=== PATIENT | male | born 1975 | race Caucasian/White ===

== ENCOUNTER 2019-05-27 10:19 | Observation (INO) | payer OTHER, SELFPAY ==
--- NOTE | ~2019-05-27 | CT_ITS ---
EXAMINATION: CTA brain carotid DATE: 05/27/2019 18:26 INDICATION: Left-sided paresthesias TECHNIQUE: Computed tomographic angiography (CTA) of the head was performed without and with 100 mL O mnipaque-350 intravenous contrast. CTA of the neck was performed with intravenous contrast. The dose- length product was 1799.96 mGy-cm. Maximum intensity projection and volume rendered 3D-reconstruction s were created by the technologist on a separate workstation. Automated exposure control and iterativ e reconstruction technique were employed. COMPARISON: None. FINDINGS: HEAD CTA: There is no intracranial hemorrhage, acute infarction, or abnormal mass lesion. The ventri cles are normal. There is no abnormal mass effect or midline shift. The chapa-white matter differentia tion is normal. The basal cisterns are patent. The orbits are normal. The paranasal sinuses, mastoids and calvarium are normal. There is no significant stenosis of the basilar artery or posterior cerebral arteries. There is no si gnificant stenosis of the intracranial internal carotid arteries or the anterior or middle cerebral a rteries. The anterior communicating artery and posterior communicating arteries are normal. There is no aneurysm. NECK CTA: There are no pathologically enlarged lymph nodes. No abnormal enhancement is present after contrast administration. There are calcified nodules of the right thyroid lobe which measure up to 9 mm. There is 0% stenosis of the proximal right internal carotid artery relative to normal distal artery l umen diameter (NASCET criteria). There is 0% stenosis of the proximal left internal carotid artery re lative to normal distal artery lumen diameter. IMPRESSION: 1. No acute intracranial abnormality. Normal head CTA. 2. 0% stenosis of the proximal right internal carotid artery relative to normal distal artery lumen d iameter (NASCET criteria). 3. 0% stenosis of the proximal left internal carotid artery relative to normal distal artery lumen di ameter. Reviewed, dictated and finalized at location A. IMPRESSION: 1. No acute intracranial abnormality. Normal head CTA. 2. 0% stenosis of the proximal right internal carotid artery relative to normal distal artery lumen diameter (NASCET criteria). 3. 0% stenosis of the proximal left internal carotid artery relative to normal distal artery lumen diameter.
--- NOTE | ~2019-05-27 | MR_ITS ---
EXAMINATION: MR brain/brain stem wo/w con DATE: 05/28/2019 10:37 INDICATION: Transient ischemic episode with left-sided paresthesias TECHNIQUE: Magnetic resonance imaging (MRI) of the brain and brainstem was performed without and with 19 mL Multihance intravenous contrast. Sequences included sagittal and axial T1-weighted SE, axial d iffusion-weighted FS SE, axial T2*-weighted GRE, axial T2-weighted FLAIR, and axial T2-weighted FSE. Postcontrast axial and coronal T1-weighted SE was obtained. Apparent diffusion coefficient (ADC) maps were created. COMPARISON: None. FINDINGS: There are no areas of restricted diffusion to suggest acute infarction. No intracranial hemorrhage or abnormal intracranial mass lesion. There are no intraparenchymal signal abnormalities seen on the ot her pulse sequences. The ventricles are symmetric and normal in size. There are no abnormal extra-axi al fluid collections. Flow voids are seen in the cerebral arteries on the T2-weighted sequences consi stent with their expected patency. Mild mucosal thickening the bilateral ethmoid sinuses. Visualized orbits and soft tissues are unremarkable. There are no areas of abnormal enhancement on the post cont rast images. IMPRESSION: 1. Normal brain. No acute intracranial process. Reviewed, dictated and finalized at location A.
--- NOTE | ~2019-05-27 | CT_ITS ---
EXAMINATION: CT brain wo con DATE: 05/27/2019 11:14 INDICATION: Facial and hand paresthesia, left side. History of hypertension. TECHNIQUE: Computed tomography (CT) of the head was performed without intravenous contrast. The mA wa s adjusted according to patient size. Iterative reconstruction technique was employed. Exam dose: 60 5.33 mGy-cm total exam DLP. COMPARISON: None FINDINGS: Mild cerebral calcified atherosclerosis. No intracranial mass lesion or hemorrhage or cerebrovascular accident is evident. Normal ventricular size. No midline shift or mass effect. No subdural or epidural hematoma. No fracture or bone destruction of the cranial vault. There is some focal soft tissue opacification of the right ethmoid air cells. Otherwise the included paranasal sinuses and mastoid air cells are normally developed and aerated. IMPRESSION: Cerebral atherosclerosis No acute intracranial finding Reviewed, dictated and finalized at Location [facility]. Reviewed, dictated and finalized at location A.
--- NOTE | ~2019-05-27 | XR_ITS ---
XR chest 2V DATE: 05/27/2019 11:14 INDICATION: Facial and hand paresthesia, tingling TECHNIQUE: PA and lateral views COMPARISON: None FINDINGS: Normal heart size. No hilar or mediastinal enlargement. No pulmonary infiltrate or consolid ation, pleural effusion or pulmonary vascular congestion or pneumothorax. 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 IMPRESSION: No active cardiopulmonary disease Reviewed, dictated and finalized at location A.
[2019-05-27 10:30] VITALS: BP 175/106; PULSE 76; RESP 12; TEMP 37.1; O2SAT 100
--- NOTE | 2019-05-27 10:36 | ECG_ITS ---
Measurements Intervals [place] Rate: 61 P: 32 NC: 175 QRS: -7 QRSD: 100 T: 34 QT: 375 QTc: 379 Interpretive Statements SINUS RHYTHM VOLTAGE CRITERIA FOR LVH BORDERLINE ECG Electronically Signed On 05-27-2019 10:42:51 CDT by Jese Iniguez D.O.
--- NOTE | 2019-05-27 10:43 | ED.NEUROSD ---
HPI - Neuro Symptoms/Deficit General Chief Complaint: Neuro Symptoms/Deficit Stated Complaint: TINGLING TO FACE, HAND Time Seen by Provider: 05/27/19 10:29 History of Present Illness HPI Narrative: Patient is a 43-year-old male who presents the ER with left-sided facial and left hand paresthesias. Experienced the symptoms briefly 2 days ago but then started having them early this morning and they have been persistent. Was instructed by his boss at work that he probably need to be checked out. Patient reports history of hypertension and high cholesterol but no other issues. Patient denies any muscle weakness or extremity weakness, he has had no ataxia or dysarthria. No history of stroke. Patient cannot find any aggravating or alleviating factors. Related Data Home Medications Medication Instructions Recorded Confirmed atorvastatin 05/27/19 hydrochlorothiazide 05/27/19 Review of Systems Review of Systems: All systems reviewed & are unremarkable except as noted in HPI and below Constitutional: Constitutional: Denies chills, Denies fever(s) and Denies weakness ENT: Denies dizziness, Denies nasal congestion and Denies sore throat Cardiovascular: Cardiovascular: Denies chest pain and Denies radiating jaw, neck or arm pain Respiratory: Respiratory: Denies cough, Denies dyspnea and Denies wheezing Gastrointestinal: Gastrointestinal: Denies abdominal pain, Denies nausea and Denies vomiting Neurologic: Denies dizziness, Denies syncope, Denies headache(s), Denies focal weakness and Reports numbness PMFSH Past Medical History Medical History (Updated 05/27/19 @ 15:24 by Joshua Spence MD) Hypercholesterolemia Hypertension Surgical History Surgical History (Updated 05/27/19 @ 15:19 by Joshua Spence MD) No pertinent past surgical history Family History Family History (Updated 05/27/19 @ 15:21 by Joshua Spence MD) Father Heart disease Social History Social History (Updated 05/27/19 @ 15:21 by Joshua Spence MD) Smoking status: Never smoker Gender identity (if verbalized by the patient): Male Exam Narrative: Exam Narrative: GENERAL: Well-appearing, well-nourished, and in no acute distress. HEAD: Normocephalic, atraumatic. EYES: PERRL and EOMI. ENT: Mucous membranes moist. CHEST: Clear to auscultation. No respiratory distress. HEART: Regular rate and rhythm. Normal peripheral pulses. ABDOMEN: Soft, nontender, nondistended. EXTREMITIES: Normal range of motion. No edema. SKIN: Warm, dry, no rash. NEURO: No focal deficits. Cranial nerves II through XII intact. No upper or lower extremity drift. Normal eacy-sg-gehc testing. No dysarthria or expressive aphasia. Alert and oriented x3. No sharp or soft touch deficit when comparing each side of the face bilaterally or in the hands. Course Course Emergency Course: NIH stroke scale 0. Patient with significantly elevated blood pressures that may be causing his symptoms. Additionally CT shows cerebral atherosclerosis. Will admit for observation and obtain MRI and further manage blood pressure. Vital Signs Vital signs: Vital Signs Temperature 98.8 F 05/27/19 10:30 Pulse Rate 76 05/27/19 10:30 Respiratory Rate 12 05/27/19 10:30 Blood Pressure 175/106 H 05/27/19 10:30 Pulse Oximetry 100 05/27/19 10:30 Temperature 97.9 F 05/27/19 14:20 Pulse Rate 56 L 05/27/19 14:20 Respiratory Rate 18 05/27/19 14:20 Blood Pressure 158/98 H 05/27/19 14:20 Pulse Oximetry 99 05/27/19 14:20 MDM - Neuro Symptoms/Deficit Lab Data Result diagrams: 05/27/19 10:42 05/27/19 10:42 Labs: Lab Results 05/27/19 05/27/19 05/27/19 Range/Units 10:42 10:42 10:42 WBC 7.1 (4.5-10.0) K/mm3 RBC 5.30 (4.2-5.4) M/mm3 Hgb 17.1 H (12.0-15.0) g/dL Hct 49.5 H (37.0-47.0) % MCV 93.4 (80-100) fl MCH 32.3 (26-34) pg MCHC 34.5 (32-36) g/dl RDW 12.4 (11.5-14.5)
[2019-05-27 10:50] LABS: Basophils Percent Auto 0.3 % (0.2-1.2); Eosinophils Absolute Auto 0.2 K/mm3 (0-0.3); Eosinophils Percent Auto 2.9 % (0-4.4); Hematocrit 49.5 % (37.0-47.0); Hemoglobin 17.1 g/dL (12.0-15.0); Immature Granulocyte Absolute 0.01 K/mm3 (0.00-0.031); Immature Granulocyte Percent A 0.1 % (0-0.5); Lymphocytes Absolute Auto 3.56 K/mm3 (0.9-3.2); Lymphocytes Percent Auto 49.9 % (18.3-44.2); Mean Corpuscular HGB Conc 34.5 g/dl (32-36); Mean Corpuscular Hemoglobin 32.3 pg (26-34); Mean Corpuscular Volume 93.4 fl (80-100); Mean Platelet Volume 10.3 fl (7.4-10.4); Monocytes Absolute Auto 0.9 K/mm3 (0.1-0.6); Monocytes Percent Auto 12.1 % (2.6-8.5); Neutrophils Absolute Auto 2.5 K/mm3 (1.3-6.7); Neutrophils Percent Auto 34.7 % (45.5-73.1); Platelet Count Result 241 k/mm3 (150-375); Red Cell Distribution Width 12.4 % (11.5-14.5); White Blood Count 7.1 K/mm3 (4.5-10.0)
[2019-05-27 11:00] LABS: Prothrombin Time 12.6 Seconds (11.1-14.7)
[2019-05-27 11:03] LABS: Blood Urea Nitrogen 13 mg/dL (9-20); Calcium 9.7 mg/dL (8.4-10.2); Carbon Dioxide 29 mmol/L (22-30); Chloride 102 mmol/L (98-107); Estimated CRCL calculation 98 ml/min; Estimated Glomerular Filt Rate > 60; Glucose 99 mg/dL (75-110); Potassium 3.5 mmol/L (3.4-5.0); Sodium 138 mmol/L (137-145)
[2019-05-27 11:15] LABS: Troponin I < 0.012 ng/mL (0.000-0.034)
[2019-05-27 13:17] VITALS: BP 162/100; PULSE 59; RESP 20; O2SAT 100
[2019-05-27 14:20] VITALS: BP 158/98; PULSE 56; RESP 18; TEMP 36.6; O2SAT 99
--- NOTE | 2019-05-27 14:24 | ADMGEN ---
This patient, Luke Rubio, was admitted to Medical Room 243-01. Patient/family oriented to hospital policies and general routines including ID bracelet, bed and alarms, visiting hours, pain management, procedures, bathroom and other care routines, personal items, smoking policy, room service/diet, and visiting hours. Valuables list has been completed. Information on how to activate the Rapid Response Team has been discussed. Patient/Family are encouraged to report perceived risks to care and to ask questions if they do not understand what they are told or what they should do.
[2019-05-27 15:08] VITALS: BMI 30.3
[2019-05-27 16:00] VITALS: PULSE 65
--- NOTE | 2019-05-27 18:15 | PM.IMHP ---
H&P: HPI History of Present Illness Chief complaint: Left-sided numbness and tingling. Narrative: Luke Rubio is a 43-year-old male with hypertension and hyperlipidemia who presented to the emergency department earlier this morning from his place of employment for evaluation of left-sided numbness and tingling. He was feeling fine when he went to work this morning, and not long prior to arrival while sitting at his desk he began to feel ?weird.? He than described having a numbness feeling around the left jaw ?like I was given Novocain and paresthesias of the left arm from the elbow into the 4th and 5th left fingers. He also mentions that his head felt funny, ?like when I stare into the sun too long.? He had a similar episode 2 days ago that began after he was outside doing yard work, which he attributed to being outside to long. His symptoms resolved by the time he got to the emergency department. Blood pressure on arrival to the emergency department was 175/106. He states compliance with his antihypertensives, but is only on 12.5 milligrams of hydrochlorothiazide. Apparently he had right carpal tunnel release in February 2019, and at that time his blood pressure was in the 150 systolic, which concerned him. He also mentioned increasing stress recently and feelings of anxiety. He denies headache, auditory visual changes, vertigo, and focal weakness. No chest pain or palpitations. Patient notes that he took aspirin 324 milligrams prior to coming into the hospital. Review of Systems Review of Systems: Narrative: Twelve systems were reviewed with pertinent positives and negatives as per HPI. He has been on slim 180 for the past couple of months and has lost approximately 35 pounds. He denies fever, chills, and sweats. No recent cold or flu symptoms. No exertional chest pain or shortness of breath. No cough. No orthopnea, PND, or lower extremity edema. He denies nausea, vomiting, and diarrhea. No dysuria. No lymphadenopathy. Denies gingival bleeding, pruritus, and flushed face. Except as documented, all other systems were reviewed and are negative. [facility] Past Medical History Medical History (Updated 05/27/19 @ 22:34 by Laurie Pittman PA-C) Hyperlipidemia Hypertension Surgical History Surgical History (Updated 05/27/19 @ 15:19 by Joshua Spence MD) No pertinent past surgical history Family History Family History (Updated 05/27/19 @ 15:58 by Nancy Tong RN) Father Heart disease Mother Small cell carcinoma Sibling Hodgkin lymphoma Social History Social History (Updated 05/27/19 @ 22:32 by Laurie Pittman PA-C) Social History: The patient lives in [place]. He has 2 dogs. He works at a local [employer]. He has no children. He smoked to half a pack of cigarettes per day for 10 years and quit several years back. He will occasionally smoke a cigar. He used to chew tobacco as well. He drinks alcohol on the weekends, and in moderation. He denies binge drinking. No drug use. He wishes to be a full code. He designates his friends Jessica and Anish rowan as his surrogate decision makers. Smoking packs per day: 0.5 Smoking cigarettes per day: 10.0 Years smoked: 10 Smoking pack-years: 5.00 Smoking status: Former smoker Tobacco type: cigarettes and cigars Smokeless tobacco user: chewing tobacco Alcohol intake: current Drinks per week: 5 Substance use: never Gender identity (if verbalized by the patient): Male Spiritual care concerns: No Agree to blood products: Yes Meds Home Medications and Allergies Home Medications Medication Instructions Recorded Confirmed Type atorvastatin 10 mg PO DAILY 05/27/19 05/27/19 History hydrochlorothiazide 12.5 mg PO DAILY 05/27/19 05/27/19 History Allergies Allergy/AdvReac Type Severity Reaction Status Date / Time No Known Allergies Allergy Verified 05/27/19 18:14 Vital Signs Vital Signs - 24 hr 0
[2019-05-27 20:00] VITALS: BP 157/106; PULSE 55; PULSE 61; RESP 20; TEMP 37.7; O2SAT 98
[2019-05-27] MEDS: LOSARTAN POTASSIUM 50 MG TABLET PO (22:27)
[2019-05-27] MEDS: hydroCHLOROthiazide 12.5 MG CAPSULE PO (22:27)
[2019-05-27] MEDS: ATORVASTATIN 10 MG TABLET PO (22:27)
[2019-05-28] VITALS: PULSE 57
[2019-05-28 01:59] VITALS: BP 116/62; PULSE 60; RESP 18; TEMP 36.3; O2SAT 98
[2019-05-28 04:00] VITALS: BP 124/74; PULSE 56; PULSE 59; RESP 18; TEMP 37.3; O2SAT 98
[2019-05-28 06:10] LABS: Basophils Percent Auto 0.3 % (0.2-1.2); Eosinophils Absolute Auto 0.2 K/mm3 (0-0.3); Eosinophils Percent Auto 2.9 % (0-4.4); Hematocrit 48.4 % (42.0-52.0); Hemoglobin 16.6 g/dL (14.0-18.0); Immature Granulocyte Absolute 0.02 K/mm3 (0.00-0.031); Immature Granulocyte Percent A 0.3 % (0-0.5); Lymphocytes Absolute Auto 3.06 K/mm3 (0.9-3.2); Lymphocytes Percent Auto 43.7 % (18.3-44.2); Mean Corpuscular HGB Conc 34.3 g/dl (32-36); Mean Corpuscular Hemoglobin 31.8 pg (26-34); Mean Corpuscular Volume 92.7 fl (80-100); Mean Platelet Volume 10.3 fl (7.4-10.4); Monocytes Absolute Auto 0.7 K/mm3 (0.1-0.6); Monocytes Percent Auto 9.4 % (2.6-8.5); Neutrophils Absolute Auto 3.1 K/mm3 (1.3-6.7); Neutrophils Percent Auto 43.4 % (45.5-73.1); Platelet Count Result 236 k/mm3 (150-375); Red Blood Count 5.22 M/mm3 (4.6-6.20); Red Cell Distribution Width 12.1 % (11.5-14.5)
[2019-05-28 06:22] LABS: Alanine Aminotransferase 41 U/L (4-50); Albumin Level 4.2 g/dL (3.5-5.1); Alkaline Phosphatase 57 U/L (38-126); Aspartate Amino Transferase 31 U/L (17-59); Cholesterol 144 mg/dL (0-200); HDL Direct 34 mg/dL; Triglycerides 89 mg/dL (<150)
[2019-05-28 06:25] LABS: Blood Urea Nitrogen 11 mg/dL (9-20); Calcium 9.3 mg/dL (8.4-10.2); Carbon Dioxide 28 mmol/L (22-30); Chloride 102 mmol/L (98-107); Estimated CRCL calculation 123 ml/min; Estimated Glomerular Filt Rate > 60; Glucose 103 mg/dL (75-110); Potassium 3.5 mmol/L (3.4-5.0); Sodium 137 mmol/L (137-145)
[2019-05-28 06:33] LABS: LDL Cholesterol Direct 96 mg/dL
[2019-05-28 08:00] VITALS: PULSE 55
[2019-05-28 08:05] VITALS: BP 140/87
[2019-05-28] MEDS: ASPIRIN 81 MG ENTERIC TABLET PO (08:51)
[2019-05-28] MEDS: LOSARTAN POTASSIUM 50 MG TABLET PO (08:52)
[2019-05-28] MEDS: ATORVASTATIN 10 MG TABLET PO (08:52)
[2019-05-28] MEDS: hydroCHLOROthiazide 12.5 MG CAPSULE PO (08:52)
--- NOTE | 2019-05-28 10:18 | CONS_ITS ---
DATE OF CONSULTATION: HISTORY OF PRESENT ILLNESS: This 43-year-old right-handed male has been admitted to the [facility] with complaints of left-sided numbness with tingling sensation in addition to ongoing history of 1. Hypertension. 2. Hyperlipidemia. He presented to the emergency room from his place of employment for the evaluation of left-sided numbness and tingling. As per the information available from him, he was feeling fine when he went to work in the morning and not long prior to arrival while sitting at his desk, he began to feel weird, developed numbness around the left jaw as if someone has given the Novocain and paresthesia of the left arm from the elbow into the 4th and the 5th finger. At the same time, his head felt funny. He had a similar episode about 2 days ago after he was outside doing yard work, which he attributed to being outside too long. His symptomatology was resolved by the time he got to the emergency department, but his blood pressure was 175/106, though he had been compliant with his antihypertensive medication and was taking 12.5 mg of hydrochlorothiazide. In the past, he has had a right carpal tunnel release in February 2019, and at that time, his systolic blood pressure was recorded to be 150. On today's visit, he definitely felt significantly better after his blood pressure came down. He has no previous surgical history. FAMILY HISTORY: Positive for the Hodgkin lymphoma in sibling. Mother with small cell carcinoma. Father with heart disease. SOCIAL HISTORY: He works at local [employer] with no children, smoked half a pack of cigarettes per day for 10 years, quit several years ago, though he occasionally smokes a cigar and also he used to chew tobacco in the past and drinks alcohol only on the weekends and in moderation. Smoking pack years 5 and years smoked 10. MEDICATIONS: He had been taking atorvastatin 10 mg daily, hydrochlorothiazide 12.5 mg daily. ALLERGIES: NOT ALLERGIC TO ANY MEDICATION. PHYSICAL EXAMINATION: GENERAL: Evaluation revealed him to be awake, alert, cooperative. VITAL SIGNS: Temp of 98.8, pulse 76, respiration 12, blood pressure 175/106, which has come down to 158/98 since he is in the hospital. HEENT: Head normocephalic with no cranial bruit. Ears, nose, throat examination normal. NECK: Supple with no cervical bruit. No thyromegaly. No lymphadenopathy. HEART: Regular with no murmur. LUNGS: Clear to auscultation. ABDOMEN: Soft with no organomegaly. NEUROLOGICAL: He is awake, alert, oriented x3. Speech not dysphasic, no dysarthric, not dysphonic. Pupils round, regular. Winkler of vision full. Extraocular movements full with no nystagmus. Facial sensation intact. Face symmetrical. Tongue midline. Uvula midline. Motor examination revealed him to have normal strength and tone in upper and lower extremities with sluggish but symmetrical reflexes. Downgoing plantar responses. LABORATORY DATA: Evaluation up until now includes CBC with WBC 7.1, hemoglobin 17.1, platelet count 241. Basic metabolic panel normal. Troponin less than 0.012. Initial CT scan of the head negative and so is the chest x-ray. Head and neck CTA was done, which revealed no intracranial or extracranial abnormalities. As mentioned above, head CT scan was negative. At this stage, he is taking atorvastatin, hydrochlorothiazide. In the emergency room, he was given the medication to lower the blood pressure and at this stage, he is feeling significantly better. DIAGNOSES: 1. Transient ischemic attack. 2. Possibility of additional carpal tunnel syndrome on the left side as well. SUGGESTIONS: To continue the antihypertensive medication. Follow in the outpatient and schedule the EMG and nerve
[2019-05-28 12:00] VITALS: PULSE 76
--- NOTE | 2019-05-28 13:32 | PM.DS ---
DS: Diagnosis Admitting Diagnosis Admitting Diagnosis: Paresthesia of skin Discharge Diagnosis (1) Paresthesias: Code(s): R20.2 - Paresthesia of skin Status: Acute (2) Hypertension: Code(s): I10 - Essential (primary) hypertension Status: Acute (3) Hyperlipidemia: Code(s): E78.5 - Hyperlipidemia, unspecified Status: Acute (4) Polycythemia: Code(s): D75.1 - Secondary polycythemia Status: Acute DS: Summary Hospital Course Reason for hospitalization: Left facial and hand paresthesias Hospital Course: Date of admission: 05/27/2019 Date of discharge: 05/28/2019 Luke Rubio is a 43-year-old male with a PMH significant for HLD, HTN, and s/p right carpal tunnel release in February 2019 who presented to the emergency department on 05/27/2019 with complaints of left-sided facial and hand paresthesias. Evidently he had an episode similar to this 2 days prior to presentation. At presentation, BP 175/106, HGB 17.1, HCT 49.5, glucose 99, and head CT revealing cerebral atherosclerosis. He was admitted to the hospitalist service on 05/27/2019 for workup of acute CVA. He had a head and neck CTA which revealed no acute abnormalities and 0% stenosis of right and left ICA. Brain MRI revealed no acute intracranial process. He had an echocardiogram done, with impression pending. He will follow-up outpatient with his primary care doctor regarding results of echocardiogram. His blood pressure improved with addition of losartan. His numbness and tingling resolved entirely. A lipid panel reveals that he was within goal range. He was evaluated by neurologist Dr. Fairchild who recommended he continue antihypertensive regimen to maintain adequate blood pressure control and begin taking aspirin daily. Losartan was added to his daily home antihypertensive regimen, and he was educated on these medication changes and understands the importance of taking his blood pressure medications and aspirin daily. He will begin monitoring his blood pressure daily and recording. Given his elevated hemoglobin and hematocrit initially, Jak2 panel and erythropoietin was drawn with results pending. He is instructed to follow up with his doctor regarding these results. Hemoglobin and hematocrit decreased on day of discharge. Additionally, he will follow-up with Dr. Fairchild for EMG and nerve conduction studies, as some of his symptoms may be explained by carpal tunnel syndrome of the left wrist. Given the resolution of his symptoms, Mr. Rubio was anxious for discharge and felt to be stable to continue self-care at home. He understands the importance of keeping his follow-up appointments and complying to his medication regimen. All of his questions were answered. After discussing worrisome signs and symptoms for which he should return, he was discharged home in hemodynamically stable condition on the afternoon of 05/28/2019 with instructions to follow-up with his PCP in 1 week. Status at Discharge Functional status at discharge: independent ambulation Overall status at discharge: patient is back to baseline Time Spent with Patient Time attestation: Total time spent providing and/or coordinating discharge services:40 minutes Time spent: Greater than 30 minutes Exam Narrative: Exam Narrative: Mr. Rubio is examined alone today. He is a well nourished 43 year old male who is lying supine in bed. He appears comfortable and is in NARD. HR 59. BP 124/74. RR 18. T 99.1F. Neuro: awake, alert and oriented x3, speech clear, no focal neuro deficits noted, pharmacologist strength equal bilateral, full sensation of face, UE, and LE, strength 5/5 throughout. HEENMT: normocephalic, atraumatic, face symmetric, EOMI, PERRL, sclerae anicteric, moist oral mucosa, normal oropharynx Neck: supple, no lymphadenopathy Respiratory: clear to auscultation bilaterally, normal respiratory effort, 98% on room air Cardio: regular rate, regular rhythm, normal S1 an
--- NOTE | 2019-05-28 22:42 | ECHO_ITS ---
Patient Info Name: Luke Rubio Age: 43 years : 1975 Gender: Male Ht: 71 in Wt: 218 lbs BSA: 2.25 m2 HR: 68 bpm BP: 140 / 78 mmHg Heart Rhythm: Sinus Rhythm Technical Quality: Good Exam Date: 05/28/2019 1:45 PM Exam Location: [facility] Pulmonary Exam Room: 243 Patient Status: Inpatient Admit Date: 05/27/2019 Staff Ordering Physician: Laurie Pittman PA-C Assistant: Ciara Garcia RDCS Attending Provider: Radha Zuñiga PA-C Exam Type: CA echo doppler color flow Study Info Indications - htn neuro symptoms Complete two-dimensional, color flow and Doppler transthoracic echocardiogram is performed. Summary 1. Left ventricular chamber size, systolic function and diastolic function are normal with no regional wall motion abnormalities with an estimated ejection fraction of 60-65%. Moderate left ventricular hypertrophy. 2. Right ventricular chamber dimension is not well seen but appears mildly enlarged with normal systolic function. 3. Left atrial chamber dimension is mildly enlarged. 4. No pulmonary hypertension, estimated pulmonary arterial systolic pressure is 29 mmHg. 5. No significant valve disease. 6. Normal sinus rhythm. Left Ventricle Left ventricular chamber dimension is normal. Left ventricular systolic function is normal, estimated at 60-65%. There is moderately increased left ventricular wall thickness. Left ventricular septal wall motion is normal. The left ventricular diastolic function is normal. Left ventricular chamber size, systolic function and diastolic function are normal with no regional wall motion abnormalities with an estimated ejection fraction of 60-65%. Moderate left ventricular hypertrophy. Right Ventricle Right ventricular chamber dimension is not well seen but appears mildly enlarged with normal systolic function. Right ventricular systolic function is normal. Left Atria Left atrial chamber dimension is mildly enlarged. Right Atria Right atrial chamber dimension is normal. Aortic Valve The aortic valve is trileaflet. There is no aortic valve sclerosis. There is no aortic valve stenosis. There is no aortic valve regurgitation. Pulmonic Valve The pulmonic valve is normal. There is no pulmonic valve stenosis. There is no pulmonic regurgitation. Mitral Valve The mitral valve has normal leaflets. There is no mitral valve stenosis. There is trace mitral valve regurgitation. Tricuspid Valve The tricuspid valve leaflets are normal. There is no significant tricuspid valve stenosis. There is trace tricuspid valve regurgitation. No pulmonary hypertension, estimated pulmonary arterial systolic pressure is 29 mmHg. Pericardium/Pleural The pericardium appears normal. There is no pericardial effusion. Inferior Vena Cava Normal inferior vena cava with >50% collapse upon inspiration consistent with Empty right atrial pressure, 10 mmHg. Aorta The aortic root size at the sinus of Valsalva is normal. The prox ascending aorta size is normal. Left Ventricular Outflow Tract Name Value Normal LVOT 2D LVOT Diameter 2.0 cm LVOT Doppler
[2019-05-31 16:13] LABS: Erythropoietin (EPO) 8.2 mIU/mL (2.6-18.5)
--- NOTE | 2019-06-02 13:22 | PC.NURSE ---
Erythropoietin- 8.[address] Amaro.
[2019-06-07 16:26] LABS: CALR Exon 9 Mutation Not Detected (Not Detected); CSF3R Exon 14/17 Mutation Not Detected (Not Detected); Clinical Indication Not Provided; JAK2 Exon 12 Mutation Not Detected (Not Detected); JAK2 V617F Mutation Not Detected (Not Detected); MPL Exon 10 Mutation Not Detected (Not Detected); Specimen Source Not Given
--- NOTE | 2019-06-09 07:20 | PC.NURSE ---
DRAGAN 2 negative
== END 2019-05-28 15:07 | disposition home or self-care (01) ==
LOC: ANHED 12:51 → ANH2MED 13:29
PROVIDERS: Physician Assistant; Admitting Provider Internal Medicine; Emergency Provider Emergency Medicine; Visit Provider Physician Assistant
DX: R20.2 Paresthesia of skin (principal); I10 Essential (primary) hypertension; E78.5 Hyperlipidemia, unspecified; D75.1 Secondary polycythemia; Z87.891 Personal history of nicotine dependence; Z79.899 Other long term (current) drug therapy
CPT/HCPCS: 36415; 70450; 70496; 70498; 70553; 71046; 80048; 80061; 80076; 81219; 81270; 81402; 81403; 81479; 82668; 84484; 85025; 85610; 85730; 93005; 93306; 99285; A9270; A9577; G0378; Q9967